=== PATIENT | female | born 1995 | race Caucasian/White ===

== ENCOUNTER 2017-08-25 13:50 | Emergency (ER) | payer OTHER ==
[2017-08-25] MEDS ORDERED: Lidocaine 1% 20 ML MDV INJECT ONE (16:40)
[2017-08-25] MEDS ORDERED: Lidocaine 1% 30 ML SDV ONE (16:50)
[2017-08-25] MEDS ORDERED: Lidocaine 1% 30 ML SDV INJECT ONE (16:54)
[2017-08-25] MEDS ORDERED: Lidocaine 1% 50 ML MDV INJECT ONE (16:56)
--- NOTE | 2017-08-25 17:01 | EDM.PDOC ---
ED HPI GENERAL MEDICAL PROBLEM - General Chief Complaint: Head Injury Stated Complaint: HEAD INJURY Time Seen by Provider: 08/25/17 14:30 Source of Information: Reports: Patient History Limitations: Reports: No Limitations - History of Present Illness INITIAL COMMENTS - FREE TEXT/NARRATIVE: 22-year-old female presents for evaluation and treatment of possible head injury. Patient reports that she was going down some stairs. She states she's been having trouble with her back and hips lately. States that she also developed shooting pain down her legs and legs give out. She states that she fell down approximately 4 stairs. She hit her head on concrete. States that she did not pass out. She currently has a headache. No syncope, vision changes or vomiting. She states she has "a little bit "of neck pain. Patient reports that she's had back and hip pain for about the last 3 weeks. No trauma. She reports that she recently started a new job taht requires a fair amount of heavy lifting and feels this likely is causing the back pain. She has been seeing a chiropractor. She has not had any imaging of her back done. She reports back pain shooting into her hips and legs. Head Pain Score (Numeric/FACES): 6 - Related Data Allergies Allergy/AdvReac Type Severity Reaction Status Date / Time No Known Allergies Allergy Verified 08/25/17 14:02 Home Meds: Home Meds Orphenadrine [Norflex] 100 mg PO BID #20 tab.er 08/25/17 [Rx] Past Medical History Neurological History: Reports: Concussion - Past Surgical History GI Surgical History: Reports: Cholecystectomy Social & Family History - Tobacco Use Smoking Status *Q: Never Smoker - Caffeine Use Caffeine Use: Reports: None - Recreational Drug Use Recreational Drug Use: No ED ROS GENERAL - Review of Systems Review Of Systems: See Below HEENT: Denies: Vision Change GI/Abdominal: Denies: Nausea, Vomiting Musculoskeletal: Reports: Back Pain Neurological: Reports: Headache. Denies: Syncope ED EXAM, HEAD INJURY - Physical Exam Exam: See Below Exam Limited By: No Limitations General Appearance: Alert, WD/WN, No Apparent Distress Head: Atraumatic, Normocephalic Nexus Criteria: No: Posterior, Midline Cervical Tenderness, Evidence of Intoxication, Altered Level of Consciousness, Focal Neurological Deficit, Painful Distraction Injuries Eyes: Bilateral Eye: EOMI, Normal Inspection, PERRL Ears: Normal External Exam Nose: Normal Inspection Throat/Mouth: Normal Inspection, Normal Lips, Normal Voice, No Airway Compromise Respiratory: No Respiratory Distress, Lungs Clear, Normal Breath Sounds Cardiovascular: Normal Peripheral Pulses, Regular Rate, Rhythm, No Murmur Back Exam: Normal Inspection, Full Range of Motion, Vertebral Tenderness (L4/L5) Extremities: Normal Inspection Neurologic: Alert, Normal Mood/Affect, Other (normal heel to sanchez testing, normal finger to nose testing; 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) Skin: Normal Color, Warm/Dry - [place] Coma Score Best Eye Response ([place]): (4) Open Spontaneously Best Verbal Response ([place]): (2) Incomprehsible Sounds Best Motor Response ([place]): (6) Obeys Commands Course - Vital Signs Last Recorded V/S: Last Vital Signs Temp 36.2 C 08/25/17 14:06 Pulse 95 08/25/17 14:06 Resp 20 08/25/17 14:06 BP 143/94 H 08/25/17 14:06 Pulse Ox 100 08/25/17 14:06 - Orders/Labs/Meds Orders: Active Orders 24 hr Category Date Time Status Lumbar Spine 2 or 3V [CR] Stat Exams 08/25/17 14:40 Taken Pelvis 1V or 2V [CR] Stat Exams 08/25/17 14:40 Taken Labs: Laboratory Tests 08/25/17 Range/Units 14:50 Urine HCG, Qual Negative (NEGATIVE) Meds: Medications Discontinued Medications Generic Name Dose Route Start Last Admin Trade Name Celioq PRN Reason Stop Dose Admin Lidocaine HCl 20 ml 08/25/17 16:40 08/25/17 16:55 Xylocaine 1% INJECT 08/25/17 16:41 Not Given ONETIME ONE Lidocaine HCl Confirm 08/25/17 16:50 08/25/17 16:55 Xylocaine-Mpf 1% Administered 08/25/17 16:51 Not Given Dose 30 ml .ROUTE .STK-MED ONE Lidocaine HCl 30 ml 08/25/17 16:54 08/25/17 16:55 Xylocaine-Mpf 1% INJECT 08/25/17 16:55 Not Given ONETIME ONE Lidocaine HCl 30 ml 08/25/17 16:56 08/25/17 16:57 Xylocaine 1% INJECT 08/25/17 16:57 30 ml ONETIME ONE Administration - Radiology Interpretation Free Text/Narrative:: Pelvis: AP view of the pelvis was obtained. Comparison: No prior study. Joint spaces within both hips are maintained. Sacroiliac joints are within normal limits. No fracture or other abnormality is appreciated. Impression: 1. No abnormality is identified on AP pelvis study. Lumbar spine: AP, lateral and coned-down lateral view centered to the lumbosacral junction were obtained. Comparison: No previous study. Vertebral body heights and disc spaces are maintained. Pedicles as well as transverse and spinous processes are intact. No subluxation or fracture is seen. Surgical clips are noted from prior cholecystectomy. Impression: 1. Prior cholecystectomy. 3 view lumbar spine study is otherwise unremarkable. - Re-Assessments/Exams Free Text/Narrative Re-Assessment/Exam: 08/25/17 17:18 I reviewed the x-ray results with the patient. I was about to discharge her with some muscle relaxers. I do not feel she needs any imaging of her head or neck. I was about to discharge the patient when she reports she has some glass stuck in between her thumb and pointer finger on her left hand. states she has some glass stuck after moving a broken mirror while at work. This occurred several weeks ago. No obvious infection. She states she did pull some glass out of the wound but she noted that there continued to be more glass. She asked that we remove it today. I encouraged her to use heat and states that this will come out on its own with time. she reports that it is causing her pain and she would like it removed today. The area was cleaned with ChloraPrep. I then injected about 1 mL of 1% lidocaine without epinephrine into the area. this the webspace between the thumb and pointer finger on the left hand. I removed a callus over the wound. I Explored the wound and did not find any glass or foreign material. Patient tolerated this well. There were no complications. We will discharge her home at this time. Discharge instructions as documented. Departure - Departure Time of Disposition: 17:24 Disposition: Home, Self-Care 01 Condition: Good Clinical Impression: Back pain - Discharge Information Prescriptions: Orphenadrine [Norflex] 100 mg PO BID #20 tab.er Instructions: Back Pain, Adult Referrals: Lindsay Olvera MD [Primary Care Provider] - Forms: ED Department Discharge, ED Return to Work/School Form Additional Instructions: [id number] Tylenol or Motrin as needed for pain and headaches. Take the Norflex 1 tab twice a day. Do not drive or operate machinery until you know how this medication will affect you. This medication can often make you drowsy. Use ice or heat to the sore areas. If your back pain and hip pain persists, follow-up with your primary care provider. you may require physical therapy on MRI for further evaluation of your back pain. Please return to the ER if your symptoms change or worsen. Wash the wound with gentle soap and water twice a day. monitor for signs of infection such as increased swelling, pus or redness. Present to the clinic or the ER should these present. - My Orders Last 24 Hours: My Active Orders 08/25/17 14:40 Lumbar Spine 2 or 3V [CR] Stat Pelvis 1V or 2V [CR] Stat - Assessment/Plan Last 24 Hours: My Active Orders 08/25/17 14:40 Lumbar Spine 2 or 3V [CR] Stat Pelvis 1V or 2V [CR] Stat
--- NOTE | 2017-08-26 07:24 | CR ---
Lumbar spine: AP, lateral and coned-down lateral views centered to the lumbosacral junction were obtained. Comparison: No previous study. Vertebral body heights and disc spaces are maintained. Pedicles as well as transverse and spinous processes are intact. No subluxation or fracture is seen. Surgical clips are noted from prior cholecystectomy. Impression: 1. Prior cholecystectomy. Three-view lumbar spine study is otherwise unremarkable. Diagnostic code #2
--- NOTE | 2017-08-26 07:24 | CR ---
Pelvis: AP view of the pelvis was obtained. Comparison: No prior study. Joint spaces within both hips are maintained. Sacroiliac joints are within normal limits. No fracture or other abnormality is appreciated. Impression: 1. No abnormality is identified on AP pelvis study. Diagnostic code #1
== END 2017-08-25 17:40 | disposition home or self-care (01) ==
LOC: JD.ED 13:50
DX: M54.9 Dorsalgia, unspecified (principal)
CPT/HCPCS: 72100; 72100-26; 72170; 72170-26; 81025; 99284